=== PATIENT | female | born 1970 ===

== ENCOUNTER 2023-08-27 07:38 | Day surgery (SDC) | payer OTHER ==
[2023-08-14 09:10] LABS: HEMATOCRIT 38.1 % (36.0-45.00); HEMOGLOBIN 13.3 g/dL (12.0-15.00); MEAN CELL VOLUME 91.4 fL (80.00-100.00); MEAN CORPUSCULAR HEMOGLOBIN 31.9 pg (27.00-32.0); MEAN CORPUSCULAR HGB CONC 34.9 g/dl (32.0-36.0); PLATELET COUNT 269 K/uL (150-450); RED BLOOD COUNT 4.17 M/uL (4.00-6.00); RED CELL DISTRIBUTION WIDTH 12.7 % (11.5-14.5)
[2023-08-14 09:11] LABS: URINE APPEARANCE Clear; URINE BILIRRUBIN Negative (NEGATIVE); URINE BLOOD Negative; URINE COLOR Yellow; URINE GLUCOSE Negative (NEGATIVE); URINE LEUKOCYTE Negative; URINE NITRATE Negative; URINE PROTEIN Negative (NEGATIVE); URINE UROBILINOGEN 0.2 E.U./dl
[2023-08-14 09:15] LABS: URINE BACTERIA 326.2 uL (0.0-1933); URINE EPITHELIAL CELLS 17.9 uL (0.0-38.8); URINE RBC 2.5 uL (0.0-20.8); URINE WBC 3.5 uL (0.0-23.2)
[2023-08-14 09:53] LABS: INR 0.99; PARTIAL THROMBOPLASTIN TIME 26.5 SECONDS (22.0-34.0); PROTHROMBIN TIME 10.4 SECONDS (9.0-11.5)
[2023-08-14 10:08] LABS: ALBUMIN 3.9 gm/dL (3.4-5.0); BILIRUBIN TOTAL 0.41 mg/dL (0.3-1.2); CALCIUM 9.4 mg/dL (8.5-10.1); CREATININE SERUM 0.63 mg/dL (0.55-1.02); GFR 98.85; GLOBULINA 3.2 G/DL (2.4-3.5); POTASSIUM 4.5 mEq/L (3.5-5.1); TOTAL PROTEIN 7.1 gm/dL (6.4-8.2); TSH 0.941 uIU/mL (0.358-3.74)
[~2023-08-27] VITALS: Ht 154.9 cm; Wt 56.7 kg
[~2023-08-27 07:38] MED LIST: CRESTOR5 MG PO; LOVAZA1 GM PO
[2023-08-27] MEDS ORDERED: MORGIDOX100 MG PO (11:59)
[2023-08-27] MEDS ORDERED: NAPR500T14 PO (11:59)
== END 2023-08-27 18:20 | disposition home or self-care (01) ==
LOC: CIR.AMB 07:38
PROVIDERS: ATTEND Obstetrics & Gynecology
DX: N93.8 Other specified abnormal uterine and vaginal bleeding (principal); N84.0 Polyp of corpus uteri; D25.0 Submucous leiomyoma of uterus